=== PATIENT | female | born 1995 | race Hispanic/Latino ===

== ENCOUNTER 2021-01-27 23:34 | Emergency (ER) | payer MEDICAID, OTHER ==
[~2021-01-27] VITALS: Ht 154.9 cm; Wt 79.4 kg
[2021-01-27 23:58] VITALS: BP 137/64
== END 2021-01-28 01:16 | disposition home or self-care (01) ==
LOC: EDH 23:34
DX: Z48.01 Encounter for change or removal of surgical wound dressing (principal)
CPT/HCPCS: 99281